=== PATIENT | female | born 1980 | race African-American/Black ===

== ENCOUNTER 2017-03-02 20:53 | Emergency (ER) | payer OTHER ==
[2017-03-02] MEDS ORDERED: IPRATROPIUM-ALBUTEROL 3 ML NEB INHALATION STA (21:51)
[2017-03-02] MEDS ORDERED: ALBUTEROL NEBULIZED 2.5 MG/3 ML INHALATION STA ×2 (21:56→22:09)
--- NOTE | 2017-03-02 22:02 | ED ---
SOB HPI - General Chief Complaint: Shortness of Breath Stated Complaint: OPAL Time Seen by Provider: 03/02/17 21:24 Source: patient Mode of arrival: ambulatory Limitations: no limitations - History of Present Illness Initial Comments: This patient is a 36-year-old woman with a history of asthma who states that she feels this is flaring up. She states that the symptoms started last night with cough and wheezing. She has used home albuterol and also an inhaled steroid. She states that her symptoms have gotten progressively worse over this afternoon and evening. The patient feels short of breath and is having frequent coughing as well as a wheeze. She has not had any sputum associated. patient denies fever or chills. She is not having any chest pain. The patient states that she usually gets an asthma exacerbation in the fall of every year. She states she has had hospital admissions, her last was about a year ago. She has never required intubation for her asthma in the past. MD Complaint: shortness of breath, cough Onset/Timin -: days(s) Consistency: constant Improves With: nothing Worsens With: nothing Known History Of: asthma Associated Symptoms: cough Treatments Prior to Arrival: bronchodilator, other (Inhaled steroid) - Related Data Home Oxygen Therapy: No Home Medications Medication Instructions Recorded Confirmed Albuterol Inhaler [Ventolin Hfa 2 puff INHALATION RT-QID PRN 08/12/15 03/02/17 Inhaler] Albuterol Nebulized [Ventolin 2.5 mg INHALATION RT-Q4H PRN 03/02/17 03/02/17 Nebulized] Ibuprofen [Motrin] 400 mg PO Q6HR PRN 03/02/17 03/02/17 Ipratropium-Albuterol Nebulize 3 ml INHALATION RT-BID PRN 03/02/17 03/02/17 [Duoneb 0.5 mg-3 mg/3 ml Soln] Previous Rx's Medication Instructions Recorded Albuterol Nebulized [Ventolin 2.5 mg INHALATION Q4H PRN #50 nebu 03/02/17 Nebulized] Azithromycin [Zithromax Z-pack] 250 mg PO DIRECTED #6 tab 03/02/17 predniSONE 60 mg PO DAILY #30 tab 03/02/17 Allergies Allergy/AdvReac Type Severity Reaction Status Date / Time No Known Allergies Allergy Verified 03/02/17 21:44 Review of Systems ROS Statement: Those systems with pertinent positive or pertinent negative responses have been documented in the HPI. ROS Other: All systems not noted in ROS Statement are negative. Constitutional: Denies: fever, chills Respiratory: Reports: cough, dyspnea, wheezes. Denies: hemoptysis Cardiovascular: Denies: chest pain, palpitations, edema, syncope Gastrointestinal: Denies: abdominal pain, vomiting Genitourinary: Denies: dysuria, hematuria Musculoskeletal: Denies: back pain Neurological: Denies: weakness Past Medical History Past Medical History: Asthma History of Any Multi-Drug Resistant Organisms: None Reported Past Surgical History: No Surgical Hx Reported Past Psychological History: No Psychological Hx Reported Smoking Status: Current every day smoker Past Alcohol Use History: Occasional Past Drug Use History: None Reported General Exam Limitations: no limitations General appearance: alert, in distress (Patient appears in mild respiratory distress with mild tachypnea and frequent cough.), obese Head exam: Present: atraumatic, normocephalic Eye exam: Present: normal appearance. Absent: scleral icterus, conjunctival injection ENT exam: Present: normal oropharynx Neck exam: Present: normal inspection Respiratory exam: Present: respiratory distress (Mild tachypnea), wheezes. Absent: rales, rhonchi, stridor, accessory muscle use, decreased breath sounds, prolonged expiratory Cardiovascular Exam: Present: regular rate, normal rhythm, normal heart sounds. Absent: systolic murmur, diastolic murmur, rubs, gallop GI/Abdominal exam: Present: soft. Absent: distended, tenderness, guarding Extremities exam: Present: normal inspection, normal capillary refill. Absent: pedal edema, calf tenderness Neurological exam: Present: alert Skin exam: Present: warm, dry, intact, normal color. Absent: rash Course Vital Signs 03/02/17 03/02/17 03/02/17 20:58 21:58 22:08 Temperature 99.4 F Pulse Rate 82 88 92 Respiratory 22 Rate Blood Pressure 140/84 O2 Sat by Pulse 96 Oximetry 03/02/17 03/02/17 03/02/17 22:09 22:20 22:27 Temperature 100.1 F H Pulse Rate 92 96 87 Respiratory 20 Rate Blood Pressure O2 Sat by Pulse 95 Oximetry Disposition Clinical Impression: Pneumonia, Asthma exacerbation Disposition: HOME SELF-CARE Condition: Fair Instructions: Asthma (ED), Pneumonia (ED) Prescriptions: Albuterol Nebulized [Ventolin Nebulized] 2.5 mg INHALATION Q4H PRN #50 nebu PRN Reason: Wheezing Azithromycin [Zithromax Z-pack] 250 mg PO DIRECTED #6 tab predniSONE 60 mg PO DAILY #30 tab Referrals: Vishal Chambers MD [Primary Care Provider] - 1-2 days
[2017-03-02] MEDS ORDERED: ACETAMINOPHEN TAB 325 MG TAB PO STA (22:33)
--- NOTE | 2017-03-02 23:14 | XR ---
EXAM: XR Chest, 2 Views CLINICAL HISTORY: Reason: cough TECHNIQUE: Frontal and lateral views of the chest. COMPARISON: No relevant prior studies available. FINDINGS: Lungs: Right lower lobe opacity, suspicious for pneumonia. Pleural space: Unremarkable. No pneumothorax. Heart: Unremarkable. No cardiomegaly. Mediastinum: Unremarkable. Bones/joints: Unremarkable. IMPRESSION: Suspect right lower lobe pneumonia
[2017-03-02] MEDS ORDERED: AZITHROMYCIN 500 MG TAB PO STA (23:17)
[2017-03-02] MEDS ORDERED: predniSONE 20 MG TAB PO STA (23:20)
[2017-03-02 23:35] VITALS: BP 122/56; PULSE 96; RESP 18; TEMP 101
== END 2017-03-02 23:34 | disposition home or self-care (01) ==
LOC: EC 20:53
DX: J45.901 Unspecified asthma with (acute) exacerbation (principal); J18.9 Pneumonia, unspecified organism; E66.9 Obesity, unspecified; F17.200 Nicotine dependence, unspecified, uncomplicated; Z68.41 Body mass index [BMI] 40.0-44.9, adult
CPT/HCPCS: 99285; 94640 ×2; 71020; J7512

== ENCOUNTER 2017-06-22 20:04 | Emergency (ER) | payer OTHER ==
--- NOTE | 2017-06-22 20:55 | ED ---
General Adult HPI - General Chief complaint: Abdominal Pain Stated complaint: coughing up blood Time Seen by Provider: 06/22/17 20:31 Source: patient Mode of arrival: ambulatory Limitations: no limitations - History of Present Illness Initial comments: Hannah is a morbidly obese 36-year-old -[place] female with a history of chronic bronchitis, asthma and tobacco abuse who presents to the emergency department today for evaluation of hemoptysis. Patient reports that she woke this morning experiencing wheezing and coughing. She figured this was just a common cold which is exacerbated by her chronic bronchitis and asthma. She reports that throughout the day she has had persistent coughing. She reports that this evening she began to cough up blood which prompted her to come to the emergency department for evaluation. Patient reports that she has never experienced this before. She was admitted in April for left lower lobe pneumonia but did not experience any hemoptysis at that time. In addition patient reports she is experiencing lower abdominal cramping similar to menstrual cramps, however she states she has had an ablation and does not have menses. - Related Data Home Medications Medication Instructions Recorded Confirmed Albuterol Inhaler [Ventolin Hfa 2 puff INHALATION RT-QID PRN 08/12/15 06/22/17 Inhaler] Albuterol Nebulized [Ventolin 2.5 mg INHALATION RT-Q4H PRN 03/02/17 06/22/17 Nebulized] Budesonide/Formoterol Fumarate 2 puff INHALATION RT-BID 06/22/17 06/22/17 [Symbicort 160-4.5 Mcg Inhaler] Previous Rx's Medication Instructions Recorded Azithromycin 250 mg PO DAILY #6 tablet 06/22/17 predniSONE 40 mg PO DAILY #10 tab 06/22/17 Allergies Allergy/AdvReac Type Severity Reaction Status Date / Time No Known Allergies Allergy Verified 06/22/17 21:36 Review of Systems ROS Statement: Those systems with pertinent positive or pertinent negative responses have been documented in the HPI. ROS Other: All systems not noted in ROS Statement are negative. Constitutional: Denies: fever ENT: Denies: epistaxis Respiratory: Reports: cough, dyspnea, wheezes, hemoptysis Cardiovascular: Denies: chest pain, palpitations Endocrine: Denies: fatigue Gastrointestinal: Reports: abdominal pain. Denies: nausea, vomiting, diarrhea, constipation, hematemesis, melena Genitourinary: Denies: urgency, dysuria, abnormal menses Musculoskeletal: Denies: back pain Skin: Denies: rash, lesions Neurological: Denies: headache, weakness Past Medical History Past Medical History: Asthma History of Any Multi-Drug Resistant Organisms: None Reported Past Surgical History: No Surgical Hx Reported Past Psychological History: No Psychological Hx Reported Smoking Status: Current every day smoker Past Alcohol Use History: Occasional Past Drug Use History: None Reported General Exam Limitations: no limitations Course Vital Signs 06/22/17 06/22/17 06/22/17 20:05 21:36 21:47 Temperature 97.7 F Pulse Rate 70 70 72 Respiratory 18 Rate Blood Pressure 156/73 O2 Sat by Pulse 100 Oximetry Medical Decision Making - Medical Decision Making Patient was seen and evaluated, history was obtained from the patient and review of medical record Patient is experiencing hemoptysis, patient was able to produce a sputum sample with streaking of bright red blood. Patient with no risk factors for tuberculosis I suspect that hemoptysis is secondary to bronchitis, labs and imaging were ordered DuoNeb ordered for wheezing Labs reveal elevated bicarbonate is consistent with patient's chronic asthma, no other abnormalities Chest x-ray improved from previous Lab and x-ray results were discussed with the patient who expresses relief. Patient has had no further episodes of cough or hemoptysis since DuoNeb. She reports feeling much better. Patient is eager for discharge home at this time. I suspect that the patient has a upper respiratory tract infection and bronchitis. I will discharge home with steroids and azithromycin. Patient was advised to return for any acute worsening or development of any new or concerning symptoms. All questions pertaining to care were answered to the best of my ability and the patient was discharged home in stable condition. - Lab Data Result diagrams: 06/22/17 21:40 06/22/17 21:40 Lab Results 06/22/17 06/22/17 06/22/17 Range/Units 21:40 21:40 21:40 WBC 6.7 (3.8-10.6) k/uL RBC 4.53 (3.80-5.40) m/uL Hgb 13.2 (11.4-16.0) gm/dL Hct 41.8 (34.0-46.0) % MCV 92.3 (80.0-100.0) fL MCH 29.2 (25.0-35.0) pg MCHC 31.6 (31.0-37.0) g/dL RDW 15.5 (11.5-15.5) % Plt Count 240 (150-450) k/uL Neutrophils % 58 % Lymphocytes % 31 % Monocytes % 4 % Eosinophils % 4 % Basophils % 0 % Neutrophils # 3.9 (1.3-7.7) k/uL Lymphocytes # 2.1 (1.0-4.8) k/uL Monocytes # 0.3 (0-1.0) k/uL Eosinophils # 0.3 (0-0.7) k/uL Basophils # 0.0 (0-0.2) k/uL PT 10.0 (9.0-12.0) sec INR 1.0 (<1.2) APTT 24.3 (22.0-30.0) sec Sodium 140 (137-145) mmol/L Potassium 4.4 (3.5-5.1) mmol/L Chloride 109 H (98-107) mmol/L Carbon Dioxide 24 (22-30) mmol/L Anion Gap 7 mmol/L BUN 12 (7-17) mg/dL Creatinine 0.80 (0.52-1.04) mg/dL Est GFR (MDRD) Af Amer >60 (>60 ml/min/1.73 sqM) Est GFR (MDRD) Non-Af >60 (>60 ml/min/1.73 sqM) Glucose 90 (74-99) mg/dL Calcium 9.7 (8.4-10.2) mg/dL Total Bilirubin 0.4 (0.2-1.3) mg/dL AST 22 (14-36) U/L ALT 39 (9-52) U/L Alkaline Phosphatase 53 (38-126) U/L Total Protein 6.4 (6.3-8.2) g/dL Albumin 3.7 (3.5-5.0) g/dL Disposition Clinical Impression: Bronchitis Disposition: HOME SELF-CARE Condition: Good Instructions: How to Stop Smoking (ED) Prescriptions: Azithromycin 250 mg PO DAILY #6 tablet predniSONE 40 mg PO DAILY #10 tab Referrals: Vishal Chambers MD [Primary Care Provider] - 1-2 days Time of Disposition: 22:25
[2017-06-22] MEDS ORDERED: IPRATROPIUM-ALBUTEROL 3 ML NEB INHALATION STA (21:16)
[2017-06-22 21:51] LABS: Basophils % (A) 0 %; Eosinophils # (A) 0.3 k/uL (0-0.7); Eosinophils % (A) 4 %; HCT 41.8 % (34.0-46.0); HGB 13.2 gm/dL (11.4-16.0); Lymphocytes # (A) 2.1 k/uL (1.0-4.8); Lymphocytes % (A) 31 %; MCH 29.2 pg (25.0-35.0); MCHC 31.6 g/dL (31.0-37.0); MCV 92.3 fL (80.0-100.0); Mean Platelet Volume 9.1; Monocytes # (A) 0.3 k/uL (0-1.0); Monocytes % (A) 4 %; Neutrophils # (A) 3.9 k/uL (1.3-7.7); Neutrophils % (A) 58 %; Platelet Count 240 k/uL (150-450); RBC 4.53 m/uL (3.80-5.40); RDW 15.5 % (11.5-15.5); WBC 6.7 k/uL (3.8-10.6)
--- NOTE | 2017-06-22 22:00 | XR ---
EXAMINATION TYPE: XR chest 2V DATE OF EXAM: 06/22/2017 COMPARISON: 03/02/2017 HISTORY: Chest pain TECHNIQUE: Frontal and lateral views of the chest are obtained. FINDINGS: Heart and mediastinum are normal. Lungs are clear. Costophrenic angles are clear. Bony tho rax is intact. IMPRESSION: Normal chest. There is improved inspiration compared to last exam.
[2017-06-22 22:02] LABS: ALT 39 U/L (9-52); AST 22 U/L (14-36); Albumin 3.7 g/dL (3.5-5.0); Alkaline Phosphatase 53 U/L (38-126); Anion Gap 7 mmol/L; Blood Urea Nitrogen 12 mg/dL (7-17); Calcium 9.7 mg/dL (8.4-10.2); Carbon Dioxide 24 mmol/L (22-30); Chloride 109 mmol/L (98-107); Glucose 90 mg/dL (74-99); Potassium 4.4 mmol/L (3.5-5.1); Sodium 140 mmol/L (137-145); Total Bilirubin 0.4 mg/dL (0.2-1.3); Total Protein 6.4 g/dL (6.3-8.2)
[2017-06-22 22:05] LABS: Partial Thromboplastin Time 24.3 sec (22.0-30.0)
[2017-06-23 23:13] VITALS: BP 134/85; PULSE 64; RESP 15; TEMP 97.3
== END 2017-06-22 22:57 | disposition home or self-care (01) ==
LOC: EC 20:04
DX: J45.909 Unspecified asthma, uncomplicated (principal); E87.8 Other disorders of electrolyte and fluid balance, not elsewhere classified; R10.30 Lower abdominal pain, unspecified; E66.01 Morbid (severe) obesity due to excess calories; F17.200 Nicotine dependence, unspecified, uncomplicated; Z79.51 Long term (current) use of inhaled steroids; Z79.899 Other long term (current) drug therapy; Z68.41 Body mass index [BMI] 40.0-44.9, adult
CPT/HCPCS: 36415; 71046; 80053; 85025; 85610; 85730; 94640; 99284

== ENCOUNTER → 2018-09-01 | Outpatient (CLI) | payer OTHER ==
--- NOTE | 2018-09-01 14:35 | CT ---
EXAMINATION TYPE: CT angio chest DATE OF EXAM: 09/01/2018 COMPARISON: Prior chest x-ray June 22, 2017 HISTORY: Shortness of breath, abnormal pulmonary function testing CT DLP: 540.7 mGycm. Automated Exposure Control for Dose Reduction was Utilized. CONTRAST: CTA scan of the thorax is performed with IV Contrast, patient injected with 55 mL of Isovue 370, pulm onary embolism protocol. MIP Images are created on CT scanner and reviewed. FINDINGS: LUNGS: The lungs are grossly clear, there is no concerning parenchymal mass or nodule identified. T here is no pleural effusion or pneumothorax seen. Mild central peribronchial wall thickening is seen. MEDIASTINUM: There is satisfactory enhancement of the pulmonary artery and its branches, there is no CT evidence for pulmonary embolism. There are prominent bilateral hilar in thoracic lymph nodes some of which are calcified left tracheobronchial region axial image 50 for reference, for reference nonc alcified subcarinal lymph node measures 2.5 x 1.6 cm axial image 52.. No cardiomegaly or pericardia l effusion is seen. OTHER: No additional significant abnormality is seen. IMPRESSION: Prominent thoracic lymph nodes some of which are calcified, no suspicious acute or chroni c pulmonary parenchymal process. Differential includes sarcoidosis, other granulomatous diseases, oth er etiologies not excluded.
== END | disposition home or self-care (01) ==
LOC: RADCTMAIN 13:41
PROVIDERS: ATTEND Family Medicine
DX: R06.02 Shortness of breath (principal); R94.2 Abnormal results of pulmonary function studies
CPT/HCPCS: 71275; Q9967

== ENCOUNTER → 2018-09-01 | Outpatient (CLI) | payer OTHER ==
--- NOTE | 2018-09-01 15:10 | US ---
EXAMINATION TYPE: US venous doppler duplex LE DATE OF EXAM: 09/01/2018 2:52 PM COMPARISON: NONE CLINICAL HISTORY: R94.2 Abnormal results of pulmonary function. Abn labs. No pain, swelling, redness or hx of blood clots. SIDE PERFORMED: Bilateral TECHNIQUE: The lower extremity deep venous system is examined utilizing real time linear array sonog rios with graded compression, doppler sonography and color-flow sonography. VESSELS IMAGED: External Iliac Vein (EIV) Common Femoral Vein Deep Femoral Vein Greater Saphenous Vein * Femoral Vein Popliteal Vein Small Saphenous Vein * Proximal Calf Veins (* superficial vessels) Right Leg: Negative for DVT Left Leg: Negative for DVT Grayscale, color doppler, spectral doppler imaging performed of the deep veins of the bilateral lower extremities. There is normal flow, compressibility, vascular waveforms. IMPRESSION: No ultrasound evidence for acute DVT in either lower extremity.
== END | disposition home or self-care (01) ==
LOC: RADUSWWP 14:23
PROVIDERS: ATTEND Family Medicine
DX: R94.2 Abnormal results of pulmonary function studies (principal)
CPT/HCPCS: 93970

== ENCOUNTER 2021-03-19 13:48 | Observation (INO) | payer OTHER ==
[2021-03-19] MEDS ORDERED: KETOROLAC 15 MG/ML 1 ML VIAL IVP STA (14:14)
[2021-03-19] MEDS ORDERED: LORazepam 2 MG/ML INJ IV STA (14:14)
--- NOTE | 2021-03-19 14:17 | ED ---
General Adult HPI - General Chief complaint: Shortness of Breath Stated complaint: OPAL Time Seen by Provider: 03/19/21 14:09 Source: patient, EMS, RN notes reviewed Mode of arrival: EMS Limitations: no limitations - History of Present Illness Initial comments: Patient is a pleasant 40-year-old female presenting to the emergency Department with shortness of breath and left sided chest discomfort. Patient was recently diagnosed with pneumonia over a week ago and is still on antibiotics. Discomfort seems to get worse as well as some breathing pounds. Patient admits to feeling anxious. Discomfort is somewhat sharp on the left side of her chest/thorax. Discomfort increases with deep breaths and movements. No history of similar symptoms previously. Patient denies fevers. Patient has minimal cough at this time with mild clear sputum. - Related Data Home Medications Medication Instructions Recorded Confirmed Albuterol Sulfate [Proair Hfa] 1 - 2 puff INHALATION RT-Q4H PRN 03/19/21 03/19/21 Chlorthalidone [Hygroton] 25 mg PO DAILY 03/19/21 03/19/21 Cyclobenzaprine [Flexeril] 10 mg PO TID PRN 03/19/21 03/19/21 Ergocalciferol [Vitamin D2 (1250 1,250 mcg PO Q30D 03/19/21 03/19/21 Mcg = 98382 Iu)] Levofloxacin [Levaquin] 500 mg PO DAILY 03/19/21 03/19/21 Potassium Chloride ER [K-Dur 10] 10 meq PO TID 03/19/21 03/19/21 amLODIPine [Norvasc] 10 mg PO DAILY 03/19/21 03/19/21 rOPINIRole HCL [Requip] 0.5 mg PO BID 03/19/21 03/19/21 Allergies Allergy/AdvReac Type Severity Reaction Status Date / Time No Known Allergies Allergy Verified 03/19/21 14:34 Review of Systems ROS Statement: Those systems with pertinent positive or pertinent negative responses have been documented in the HPI. ROS Other: All systems not noted in ROS Statement are negative. Constitutional: Denies: fever Eyes: Denies: eye pain ENT: Denies: ear pain Respiratory: Reports: as per HPI, dyspnea Cardiovascular: Reports: as per HPI Endocrine: Denies: fatigue Gastrointestinal: Denies: abdominal pain Genitourinary: Denies: dysuria Musculoskeletal: Denies: back pain Skin: Denies: rash Neurological: Denies: weakness Past Medical History Past Medical History: Asthma History of Any Multi-Drug Resistant Organisms: None Reported Past Surgical History: No Surgical Hx Reported Past Psychological History: No Psychological Hx Reported Smoking Status: Current every day smoker Past Alcohol Use History: Rare Past Drug Use History: None Reported General Exam Limitations: no limitations General appearance: alert, in no apparent distress Head exam: Present: normocephalic Eye exam: Present: normal appearance ENT exam: Present: normal oropharynx Neck exam: Present: normal inspection Respiratory exam: Present: normal lung sounds bilaterally, chest wall tenderness (Diffusely on the left) Cardiovascular Exam: Present: regular rate, normal rhythm Expanded Peripheral pulses: 2+: Radial (R), Radial (L), Posterior Tibialis (R), Posterior Tibialis (L), Dorsalis Pedis (R), Dorsalis Pedis (L) GI/Abdominal exam: Present: soft. Absent: tenderness Extremities exam: Present: normal inspection. Absent: pedal edema, calf tenderness Neurological exam: Present: alert Psychiatric exam: Present: anxious (Patient does appear mildly anxious) Skin exam: Present: normal color Course Vital Signs 03/19/21 03/19/21 14:10 14:14 Temperature 97.6 F Pulse Rate 98 Respiratory 17 28 H Rate Blood Pressure 135/4 O2 Sat by Pulse 100 Oximetry - Reevaluation(s) Reevaluation #1: 03/19/21 14:16 Nurse reported patient is hyperventilating that has improved. Patient is receptive to receiving medication for anxiety that she is experiencing. EKG Findings - EKG Comments: EKG Findings:: Normal sinus rhythm with a rate of 88. WA 112. QRS 86. QT 368. QTC 445. Normal axis. Normal QRS. Lateral T wave inversion. Medical Decision Making - Medical Decision Making Patient reevaluated and resting comfortably in bed. Patient does feel somewhat better. Patient updated on results and plan. Case discussed with practitioner Mei, covering with Dr. Chambers, who will admit. She will notify him and they will decide if cardiology consult as needed. - Lab Data Result diagrams: 03/19/21 14:44 03/19/21 14:44 Lab Results 03/19/21 03/19/21 03/19/21 Range/Units 14:44 14:44 14:44 WBC 13.3 H (3.8-10.6) k/uL RBC 5.75 H (3.80-5.40) m/uL Hgb 17.5 H (11.4-16.0) gm/dL Hct 51.9 H (34.0-46.0) % MCV 90.2 (80.0-100.0) fL MCH 30.4 (25.0-35.0) pg MCHC 33.7 (31.0-37.0) g/dL RDW 13.0 (11.5-15.5) % Plt Count 332 (150-450) k/uL MPV 8.9 Neutrophils % 74 % Lymphocytes % 18 % Monocytes % 5 % Eosinophils % 1 % Basophils % 1 % Neutrophils # 9.8 H (1.3-7.7) k/uL Lymphocytes # 2.4 (1.0-4.8) k/uL Monocytes # 0.6 (0-1.0) k/uL Eosinophils # 0.1 (0-0.7) k/uL Basophils # 0.1 (0-0.2) k/uL PT 10.9 (9.0-12.0) sec INR 1.0 (<1.2) APTT 22.3 (22.0-30.0) sec D-Dimer 0.28 (<0.60) mg/L FEU Sodium 136 L (137-145) mmol/L Potassium 4.2 (3.5-5.1) mmol/L Chloride 104 (98-107) mmol/L Carbon Dioxide 15 L (22-30) mmol/L Anion Gap 17 mmol/L BUN 22 H (7-17) mg/dL Creatinine 1.84 H (0.52-1.04) mg/dL Est GFR (CKD-EPI)AfAm 39 (>60 ml/min/1.73 sqM) Est GFR (CKD-EPI)NonAf 34 (>60 ml/min/1.73 sqM) Glucose 132 H (74-99) mg/dL Plasma Lactic Acid Prudencio (0.7-2.0) mmol/L Calcium 11.5 H (8.4-10.2) mg/dL Total Bilirubin 1.3 (0.2-1.3) mg/dL AST 33 (14-36) U/L ALT 30 (4-34) U/L Alkaline Phosphatase 113 (38-126) U/L Troponin I (0.000-0.034) ng/mL Total Protein 8.4 H (6.3-8.2) g/dL Albumin 4.8 (3.5-5.0) g/dL 03/19/21 03/19/21 Range/Units 14:44 14:44 WBC (3.8-10.6) k/uL RBC (3.80-5.40) m/uL Hgb (11.4-16.0) gm/dL Hct (34.0-46.0) % MCV (80.0-100.0) fL MCH (25.0-35.0) pg MCHC (31.0-37.0) g/dL RDW (11.5-15.5) % Plt Count (150-450) k/uL MPV Neutrophils % % Lymphocytes % % Monocytes % % Eosinophils % % Basophils % % Neutrophils # (1.3-7.7) k/uL Lymphocytes # (1.0-4.8) k/uL Monocytes # (0-1.0) k/uL Eosinophils # (0-0.7) k/uL Basophils # (0-0.2) k/uL PT (9.0-12.0) sec INR (<1.2) APTT (22.0-30.0) sec D-Dimer (<0.60) mg/L FEU Sodium (137-145) mmol/L Potassium (3.5-5.1) mmol/L Chloride (98-107) mmol/L Carbon Dioxide (22-30) mmol/L Anion Gap mmol/L BUN (7-17) mg/dL Creatinine (0.52-1.04) mg/dL Est GFR (CKD-EPI)AfAm (>60 ml/min/1.73 sqM) Est GFR (CKD-EPI)NonAf (>60 ml/min/1.73 sqM) Glucose (74-99) mg/dL Plasma Lactic Acid Prudencio 3.3 H* (0.7-2.0) mmol/L Calcium (8.4-10.2) mg/dL Total Bilirubin (0.2-1.3) mg/dL AST (14-36) U/L ALT (4-34) U/L Alkaline Phosphatase (38-126) U/L Troponin I <0.012 (0.000-0.034) ng/mL Total Protein (6.3-8.2) g/dL Albumin (3.5-5.0) g/dL - Radiology Data Radiology results: image reviewed (Chest x-ray shows no acute process) Disposition Clinical Impression: Chest pain Disposition: ADMITTED IP TO THIS HOSP Is patient prescribed a controlled substance at d/c from ED?: No Referrals: Vishal Chambers MD [Primary Care Provider] - 1-2 days Decision Time: 16:33
[2021-03-19 14:56] LABS: Basophils # (A) 0.1 k/uL (0-0.2); Basophils % (A) 1 %; Eosinophils # (A) 0.1 k/uL (0-0.7); Eosinophils % (A) 1 %; HCT 51.9 % (34.0-46.0); HGB 17.5 gm/dL (11.4-16.0); Lymphocytes # (A) 2.4 k/uL (1.0-4.8); Lymphocytes % (A) 18 %; MCH 30.4 pg (25.0-35.0); MCHC 33.7 g/dL (31.0-37.0); MCV 90.2 fL (80.0-100.0); Mean Platelet Volume 8.9; Monocytes # (A) 0.6 k/uL (0-1.0); Monocytes % (A) 5 %; Neutrophils # (A) 9.8 k/uL (1.3-7.7); Neutrophils % (A) 74 %; Platelet Count 332 k/uL (150-450); RBC 5.75 m/uL (3.80-5.40); WBC 13.3 k/uL (3.8-10.6)
[2021-03-19 15:04] LABS: Albumin 4.8 g/dL (3.5-5.0); Calcium 11.5 mg/dL (8.4-10.2); Potassium 4.2 mmol/L (3.5-5.1); Total Bilirubin 1.3 mg/dL (0.2-1.3); Total Protein 8.4 g/dL (6.3-8.2)
--- NOTE | 2021-03-19 15:16 | XR ---
EXAMINATION TYPE: XR chest 2V DATE OF EXAM: 03/19/2021 COMPARISON: 06/22/2017 HISTORY: Chest pain TECHNIQUE: Frontal and lateral views of the chest are obtained. FINDINGS: There is no focal air space opacity. No evidence for pneumothorax. No pleural effusion. The cardiac silhouette size is within normal limits. The osseous structures are grossly intact. IMPRESSION: 1. No acute cardiopulmonary process.
[2021-03-19 15:19] LABS: Partial Thromboplastin Time 22.3 sec (22.0-30.0); Prothrombin Time 10.9 sec (9.0-12.0)
[2021-03-19] MEDS ORDERED: SODIUM CHLORIDE 0.9% 1,000 ML IV STA ×2 (15:31→16:37)
[2021-03-19] MEDS ORDERED: NITROGLYCERIN SL TABS 0.4 MG TAB SUBLINGUAL PRN (16:33)
[2021-03-19] MEDS ORDERED: ASPIRIN 81 MG PO STA (16:33)
[2021-03-20 03:20] LABS: Appearance,Urine Cloudy (Clear); Bacteria,Urine Occasional /hpf; Bilirubin,Urine Negative (Negative); Blood,Urine Negative (Negative); Color,Urine Yellow; Glucose,Urine (UA) Negative (Negative); Granular Casts,Urine 3 /lpf (0); Hyaline Casts,Urine 129 /lpf (0-2); Ketones,Urine Negative (Negative); Leukocyte Esterase,Urine Moderate (Negative); Mucus,Urine Few /hpf; Nitrite,Urine Negative (Negative); PH, Urine 5.5 (5.0-8.0); Protein,Urine 1+ (Negative); RBC,Urine 4 /hpf (0-5); Specific Gravity,Urine 1.023 (1.001-1.035); Squamous Epithelial Cell,Urine 12 /hpf (0-4); Urobilinogen,Urine <2.0 mg/dL (<2.0); WBC,Urine 8 /hpf (0-5)
[2021-03-20 08:05] VITALS: BP 121/78; PULSE 83; RESP 18; TEMP 97.9
[2021-03-20 08:08] LABS: African American GFR (CKD) 83 (>60 ml/min/1.73 sqM); Anion Gap 9 mmol/L; Blood Urea Nitrogen 23 mg/dL (7-17); Calcium 9.7 mg/dL (8.4-10.2); Carbon Dioxide 22 mmol/L (22-30); Chloride 104 mmol/L (98-107); Glucose 101 mg/dL (74-99); Non-African American GFR(CKD) 72 (>60 ml/min/1.73 sqM); Potassium 4.2 mmol/L (3.5-5.1); Sodium 135 mmol/L (137-145)
[2021-03-20] MEDS ORDERED: ASPIRIN 325 MG TAB PO SCH (09:00)
--- NOTE | 2021-03-20 15:25 | HP ---
HISTORY AND PHYSICAL CHIEF COMPLAINT: Shortness of breath and chest wall pain. HISTORY OF PRESENT ILLNESS: This is a first admission for this 40-year-old -[place] female. While she was work, she began to notice shortness of breath and generalized muscle spasms in the stomach, back, legs and chest. She then vomited. She then came to the emergency room. Because of the chest pain, she was admitted. She denies any diaphoresis, radiation of the pain into the jaw, arms, back, etc. She has had no fever, chills, cough, hemoptysis, sputum production, etc. She has felt well. Past medical history, family history, and personal and social histories are all essentially noncontributory. She is NOT ALLERGIC TO ANY MEDICATION. She has been on Levaquin 500 mg once a day and Medrol Dosepak for bronchitis and asthma. She is on amlodipine 10 mg once a day, vitamin D, chlorthalidone 25 mg once a day, ProAir, Symbicort 160, DuoNeb updrafts. She does continue to smoke. She does not have a significant family history. PHYSICAL EXAMINATION: Blood pressure is 125/84 with a pulse of 75, respirations of 20, and she is afebrile. In general she appeared to be overweight, in no acute distress. Skin color is normal. Skin is dry. Head, ears, eyes, nose, mouth and throat were normal. Chest is clear. Cardiac exam is normal with sinus rhythm. No murmurs or extra sounds. The abdomen is protuberant, soft and nontender without any masses or visceromegaly. Extremities are normal. Neurologically she is intact. She is admitted to the hospital with the diagnoses: 1. Shortness of breath with muscle cramps and chest pain. 2. Nicotine use. 3. Obesity. 4. Hypertension. PLAN: 1. Bedrest. 2. IV fluids. 3. Serial EKGs and enzymes with frequent monitoring of vital signs. MMODL / IJN: [id number] /
--- NOTE | 2021-03-20 15:40 | DS ---
DISCHARGE SUMMARY CHIEF COMPLAINT: Shortness of breath and chest wall muscle spasms. HISTORY OF PRESENT ILLNESS AND PHYSICAL EXAM: Details of this lady's history and physical can be found in the initial workup. LABORATORY STUDIES: While she was in the hospital she had laboratory studies, details of which can be found in the laboratory section of her chart. COURSE IN THE HOSPITAL: After admission she was placed on bedrest and started intravenous fluids, and muscle spasms went away. Vital signs remained normal. Blood work was also normal. She was doing well. It was felt that she could go home on March 20 on her usual activity, diet and medication, and she will follow up in several days in the office. FINAL DIAGNOSES: 1. Shortness of breath. 2. Muscle spasms of the chest wall. 3. Atypical chest pain. 4. Hypertension. OPERATIONS: None. CONSULTATIONS: None. She is improved. YUSEF / BELKYS: [id number] /
[2021-03-20 21:47] LABS: Chol/HDL Ratio 4.79 Ratio; HDL Cholesterol 31.5 mg/dL (40.00-60.00); LDL Cholesterol,Calculated 98.1 mg/dL (0.0-131.0); VLDL Calculation 21.4 mg/dL (5.00-40.00)
== END 2021-03-20 12:15 | disposition home or self-care (01) ==
LOC: EC 13:48 → 6NMEDSUR 16:33
PROVIDERS: ADMIT Family Medicine; ATTEND Family Medicine
DX: R07.89 Other chest pain (principal); M62.838 Other muscle spasm; J45.909 Unspecified asthma, uncomplicated; J40 Bronchitis, not specified as acute or chronic; I10 Essential (primary) hypertension; F41.9 Anxiety disorder, unspecified; F17.200 Nicotine dependence, unspecified, uncomplicated; R11.10 Vomiting, unspecified; E66.9 Obesity, unspecified; Z68.41 Body mass index [BMI] 40.0-44.9, adult; Z79.51 Long term (current) use of inhaled steroids; Z79.899 Other long term (current) drug therapy; Z87.01 Personal history of pneumonia (recurrent); Z20.822 Contact with and (suspected) exposure to COVID-19
CPT/HCPCS: 96361; 96374; 96375; 99285; 36415; 93005 ×2; 85379; 80061; 80053; 80048; 83605; 84484; 85025; 85610; 85730; 81001; 87635; 71046; G0378 ×2; J2060; J1885

== ENCOUNTER → 2024-10-05 | Outpatient (CLI) | payer OTHER ==
--- NOTE | 2024-10-05 10:57 | MM ---
Reason for Exam: Screening (asymptomatic). Baseline mammogram. Patient History: Menarche at age 15. First Full-Term at age 21. Premenopausal. Risk Values: Francheska 5 year model risk: 0.6%. NCI Lifetime model risk: 7.3%. Prior Study Comparison: Patient's first Mammogram. Tissue Density: There are scattered areas of fibroglandular density. Findings: Analyzed By CAD. There is no suspicious group of microcalcifications or new suspicious mass in either breast. Overall Assessment: Negative, BI-RAD 1 Management: Screening Mammogram of both breasts in 1 year. . Patient should continue monthly self-breast exams. A clinical breast exam by your physician is recommended on an annual basis. This exam should not preclude additional follow-up of suspicious palpable abnormalities. Note on Francheska scores and lifetime risk: 1. A Francheska score greater than 3% is considered moderate risk. If this is the case, consider specialist referral to assess eligibility for a risk reducing agent. 2. If overall lifetime risk for the development of breast cancer is 20% or higher, the patient may qualify for future screening with alternating mammogram and breast MRI. [facility], , 10/05/2024 10:54 AM. Electronically signed and approved by: Zachary Matthews M.D. Radiologis
== END | disposition home or self-care (01) ==
LOC: RADMAMWWP 09:56
PROVIDERS: ATTEND Family Medicine
DX: Z12.31 Encounter for screening mammogram for malignant neoplasm of breast (principal); R92.323 Mammographic fibroglandular density, bilateral breasts
CPT/HCPCS: 77067

== ENCOUNTER → 2024-11-07 | Outpatient (CLI) | payer OTHER ==
--- NOTE | 2024-11-07 08:36 | US ---
EXAMINATION TYPE: US liver DATE OF EXAM: 11/07/2024 COMPARISON: NONE CLINICAL INDICATION: Female, 44 years old with history of I65.29 OCCLUSION AND STENOSIS OF UNSPECIFIE D CAROT; fatty liver. TECHNIQUE: Grayscale and color Doppler imaging of the right upper quadrant was performed. FINDINGS: EXAM MEASUREMENTS: Liver Length: 16.7 cm Gallbladder Wall: .3 cm CBD: .5 cm Right Kidney: 10.1 x 4.1 x 4.1 cm HEEL SEAT FILLER NOTES: Pancreas: Obscured by bowel gas Liver: Increased attenuation Gallbladder: No stones seen Evidence for sonographic Leonard's sign: No CBD: wnl Right Kidney: No hydronephrosis or masses seen Suboptimal evaluation of pancreas. Visualized liver is heterogeneously hyperechoic. This limits evalu ation for focal masses. No ascites. No biliary dilatation. IMPRESSION: Heterogeneous hyperechoic appearance of liver consistent with mild diffuse fatty infiltra tive hepatocellular disease. [facility], , 11/07/2024 8:34 AM
== END | disposition home or self-care (01) ==
LOC: RADUSWWP 08:01
PROVIDERS: ATTEND Family Medicine
DX: K76.0 Fatty (change of) liver, not elsewhere classified (principal); Z86.79 Personal history of other diseases of the circulatory system
CPT/HCPCS: 76705